=== PATIENT | female | born 1990 | race Hispanic/Latino ===

== ENCOUNTER 2017-06-23 20:18 | Inpatient (IN) | payer MEDICAID ==
[~2017-06-23] VITALS: Ht 162.6 cm; Wt 75.7 kg
[2017-06-23 21:29] LABS: APPEARANCE,URINE Clear (CLEAR); BILIRUBIN,URINE Negative (NEGATIVE); COLOR,URINE Yellow (YELLOW); GLUCOSE, URINE (UA) Negative (NEGATIVE); KETONES,URINE Negative (NEGATIVE); LEUKOCYTE ESTERASE ,URINE Negative (NEGATIVE); NITRATE,URINE Negative (NEGATIVE); OCCULT BLOOD,URINE Negative (NEGATIVE); PH,URINE 7.5 (5.0-8.0); PROTEIN,URINE Negative (NEGATIVE); UROBILINOGEN,URINE 0.2 mg/dL (0.2-1.0)
[2017-06-23 21:32] LABS: MEAN CORPUSCULAR HEMOGLOBIN 30.5 pg (27.0-33.0); MEAN CORPUSCULAR HGB CONC 35.2 g/dL (32.0-36.0); MEAN CORPUSCULAR VOLUME 86.4 fL (79-99); PLATELET COUNT (AUTO) 210 K/uL (130-400); RED BLOOD CELL COUNT(AUTO) 3.59 MIL/uL (4.00-5.50); WHITE BLOOD COUNT (AUTO) 10.1 K/uL (4.8-10.8)
[2017-06-24] MEDS: LACTATED RINGERS 1000ML 1,000 ML IV PRN ×2 (00:32→04:52)
[2017-06-24] MEDS ORDERED: OXYTOCIN 10 USP UNITS/ML 20 UNIT in LACTATED RINGERS 1000ML 1,000 ML IV SCH ×2 (03:00→06:30)
[2017-06-24] MEDS ORDERED: OXYTOCIN 10 USP UNITS/ML ONE ×2 (05:26→12:27)
[2017-06-24] MEDS ORDERED: MEPERIDINE-PF 50 MG/ML SYG IVP SCH (09:15)
[2017-06-24] MEDS ORDERED: PROMETHAZINE HCL 25 MG/ML 1ML AMPULE IM SCH (09:15)
[2017-06-24] MEDS ORDERED: MEPERIDINE-PF 50 MG/ML SYG ONE (09:17)
[2017-06-24] MEDS ORDERED: PROMETHAZINE HCL 25 MG/ML 1ML AMPULE IM ONE (09:17)
[2017-06-24] MEDS ORDERED: LIDOCAINE HCL 1% 20 ML VIAL ONE (09:59)
[2017-06-24] MEDS ORDERED: LACTATED RINGERS 1000ML 1,000 ML IV ONE (12:26)
[2017-06-24 12:51] VITALS: BP 118/65
[2017-06-24] MEDS ORDERED: LANOLIN 30GM OINTMENT TP ONE (12:56)
[2017-06-24] MEDS ORDERED: LANOLIN 30GM OINTMENT TP PRN (13:45)
[2017-06-24] MEDS ORDERED: ACETAMINOPHEN 325 MG TAB PO PRN (13:45)
[2017-06-24] MEDS ORDERED: ACETAMINOPHEN-CODEINE 300/30MG TAB PO PRN (13:45)
[2017-06-24] MEDS: IBUPROFEN 600 MG TABLET PO PRN (15:42)
[2017-06-24 16:25] VITALS: BP 118/65
[2017-06-24 19:49] VITALS: BP 120/69
[2017-06-24] MEDS: DOCUSATE SODIUM 100 MG CAP PO SCH (21:01)
[2017-06-24 23:21] VITALS: BP 121/70
[2017-06-25 02:57] VITALS: BP 124/71
[2017-06-25 05:42] LABS: HEMATOCRIT 28.1 % (36-48); MEAN CORPUSCULAR HEMOGLOBIN 29.8 pg (27.0-33.0); MEAN CORPUSCULAR HGB CONC 34.3 g/dL (32.0-36.0); MEAN CORPUSCULAR VOLUME 86.8 fL (79-99); PLATELET COUNT (AUTO) 213 K/uL (130-400); RED BLOOD CELL COUNT(AUTO) 3.24 MIL/uL (4.00-5.50); WHITE BLOOD COUNT (AUTO) 10.3 K/uL (4.8-10.8)
[2017-06-25 07:30] LABS: HEPATITIS Bs ANTIGEN SCREEN P Negative (Negative)
[2017-06-25 08:33] VITALS: BP 101/62
[2017-06-25] MEDS: DOCUSATE SODIUM 100 MG CAP PO SCH (09:07)
[2017-06-25] MEDS: IBUPROFEN 600 MG TABLET PO PRN (09:08)
[2017-06-25] MEDS ORDERED: IBUP-2070 PO (11:08)
[2017-06-25] MEDS ORDERED: FERS325 PO (11:10)
== END 2017-06-25 11:45 | disposition home or self-care (01) | DRG 560 ==
LOC: LDH 20:18 → WSH 06-24 12:50 → PREOBSVTOIN 07-02 20:17
PROVIDERS: ADMIT Obstetrics & Gynecology; ATTEND Obstetrics & Gynecology
PROC: 10E0XZZ Delivery of Products of Conception, External Approach (ICD-10-PCS; principal; 2017-06-24)
PROC: 10907ZC Drainage of Amniotic Fluid, Therapeutic from Products of Conception, Via Natural or Artificial Opening (ICD-10-PCS; 2017-06-24)
DX: O69.81X0 Labor and delivery complicated by cord around neck, without compression, not applicable or unspecified (principal); D64.9 Anemia, unspecified; Z37.0 Single live birth; Z3A.39 39 weeks gestation of pregnancy; O90.81 Anemia of the puerperium
CPT/HCPCS: 36415; 81003; 85027; 86592; 86850; 86900; 86901; 87340; A4351; A4606; J2175; J2550; J2590; J7120